=== PATIENT | female | born 1985 | race Caucasian/White ===

== ENCOUNTER 2017-08-25 15:02 | Emergency (ER) | payer BC ==
[~2017-08-25] VITALS: Ht 152.4 cm; Wt 87.1 kg
[~2017-08-25 15:02] MED LIST: NOHOMEMEDICATIONS; PERCOCET 5-3251 EACH PO; PRENATAL; ZOFRAN4 MG PO
[2017-08-25] MEDS ORDERED: FLEXERIL PO (17:07)
[2017-08-25] MEDS ORDERED: HYDROCODONE-AP1 EAC6 PO (17:07)
[2017-08-25] MEDS ORDERED: NAPROSYN500 MG PO (17:07)
[2017-08-25 17:54] VITALS: BP 128/58
== END 2017-08-25 17:54 | disposition home or self-care (01) ==
LOC: M.ERS 15:02
DX: S39.012A Strain of muscle, fascia and tendon of lower back, initial encounter (principal); Z88.1 Allergy status to other antibiotic agents; V89.2XXA Person injured in unspecified motor-vehicle accident, traffic, initial encounter; Y93.I9 Activity, other involving external motion; Y92.89 Other specified places as the place of occurrence of the external cause; Y99.8 Other external cause status

== ENCOUNTER 2018-03-02 16:46 | Emergency (ER) | payer BC ==
[~2018-03-02] VITALS: Ht 152.4 cm; Wt 87.1 kg
[~2018-03-02 16:46] MED LIST changes: +FLEXERIL PO; +HYDROCODONE-AP1 EAC6 PO; +NAPROSYN500 MG PO
[2018-03-02] MEDS ORDERED: TOPAMAX 100 MG100 MG PO (16:57)
[2018-03-02] MEDS ORDERED: SYNTHROID50 MCG PO (16:57)
[2018-03-02 17:30] LABS: NUCLEATED RBCS 0 /100WBC; RDW-CV 13.8 % (10.5-14.5)
[2018-03-02 17:31] LABS: ABSOLUTE EOSINOPHILS 0.2 thou/uL (0.0-0.7); ABSOLUTE LYMPHOCYTES 2.2 thou/uL (0.8-5.3); ABSOLUTE MONOCYTES 0.5 thou/uL (0.0-1.2); ABSOLUTE NEUTROPHILS 3.2 thou/uL (1.6-8.1); BASOPHILS 0.6 %; EOSINOPHILS 2.9 %; HEMATOCRIT 41.8 % (37.0-47.0); LYMPHOCYTES 36.1 %; MCH 29.3 pg (26.0-34.0); MCHC 33.5 g/dL (28.0-37.0); MCV 87.2 fL (80.0-100.0); MPV 9.3 fl. (7.2-11.1); PLATELET COUNT* 245 thou/uL (150-400); POLYS 52.4 %; WBC 6.2 thou/uL (4.0-11.0)
[2018-03-02 17:44] LABS: CALCIUM 8.2 mg/dL (8.5-10.1); CREATININE 0.9 mg/dL (0.6-1.3); POTASSIUM 3.7 mmol/L (3.5-5.1)
[2018-03-02 17:49] LABS: ALBUMIN 3.1 g/dL (3.4-5.0); TOTAL BILIRUBIN 0.3 mg/dL (<0.1-1.0); TOTAL PROTEIN 6.4 g/dL (6.4-8.2)
[2018-03-02 18:18] VITALS: BP 113/70
== END 2018-03-02 18:24 | disposition home or self-care (01) ==
LOC: M.ERS 16:46
PROVIDERS: Nurse Practitioner Psychiatric/Mental Health
DX: G43.909 Migraine, unspecified, not intractable, without status migrainosus (principal); Z88.1 Allergy status to other antibiotic agents

== ENCOUNTER 2021-05-01 14:15 | Emergency (ER) | payer OTHER ==
[~2021-05-01] VITALS: Ht 152.4 cm; Wt 99.8 kg
[~2021-05-01 14:15] MED LIST changes: +SYNTHROID50 MCG PO; +TOPAMAX 100 MG100 MG PO
[2021-05-01] MEDS ORDERED: TRAMADOL 50 MG50 MG PO (15:52)
[2021-05-01] MEDS ORDERED: IBUPROFEN 600600 M1 PO (15:52)
[2021-05-01 16:11] VITALS: BP 130/72
== END 2021-05-01 16:11 | disposition home or self-care (01) ==
LOC: M.ERS 14:15
DX: M25.562 Pain in left knee (principal); G43.909 Migraine, unspecified, not intractable, without status migrainosus; F17.210 Nicotine dependence, cigarettes, uncomplicated; Z88.1 Allergy status to other antibiotic agents